=== PATIENT | female | born 1985 | race Caucasian/White ===

== ENCOUNTER 2022-02-02 01:46 | Day surgery (SDC) | payer OTHER, SELFPAY ==
[2022-01-28 14:10] VITALS: BMI 33.3
--- NOTE | 2022-01-28 14:19 | PC.NURSE ---
Report to the Outpatient Waiting Room, entrance under the green pavilion located off [facility], at time 0800 on date 02/02/22. OR Time: 1000. Time changes happen often and if your time is changed the preop area will call you the afternoon before. - You and your visitor will be asked to self-screen and do not enter if you have any COVID symptoms. - We encourage only one visitor and NO visitors under age 16 are allowed at this time. Your visitor will receive communication by the phone number that is given day of service. - The patient visitor is requested to social distance or may leave the building when not with patient due to restrictions. - A mask is required within the hospital. Patients may have clear liquids (water, carbonated beverages, clear teas, apple juice) until 3 hours prior to surgery with a maximum of 20 ounces. - No food from midnight until time of surgery Take the following medications with a SIP of water the morning of surgery: BUSPIRONE, GABAPENTIN Medications to discontinue per physician: VITAMINS Date to take last dose: 01/29/[address] FLORES'S INSTRUCTIONS Please no make-up, nail mozambican, hairspray, perfume, deodorant, or body powder the day of surgery. No jewelry (including any body piercings) or valuables the day of surgery, leave them at home. Please take a shower or bath the night before, or the morning of, surgery with an antibacterial soap. Wear comfortable, loose fitting clothing. - Jewelry must be removed prior to entering the operating room. Rings and piercings that are not removed may be cut off. - The hospital will not accept responsibility for valuables. - Please leave all valuables, including medications, at home the day of surgery. If you are going home after surgery, a licensed armored car driver must drive you home. - NO public transportation without another adult. - We recommend that an adult stay with you for 24 hours following discharge. - We also recommend that you do not drive, make important decision, drink alcoholic beverages, or take any drugs that were not prescribed by your health care provider for at least 24 hours after your discharge time. Follow any additional instructions given to you from your surgeon. If you or anyone in your household have experienced Covid symptoms in the past week, please notify your surgeon or the nurse liaison at the phone number below for possible testing. Telephone instructions given to PT - NICHOL WARD and asked if any additional questions and then verbalized understanding. Patient advised to call surgeon office or pre surgery nurse liaison [phone] if any additional questions.
[2022-02-02] MEDS: ACETAMINOPHEN 500 MG TABLET 1000 MG PO (08:45)
[2022-02-02] MEDS: LACTATED RINGERS 1,000 ML 30 ML IV CONT ×2 (08:55→11:00)
[2022-02-02] MEDS: ONDANSETRON INJ 4 MG/2 ML VIAL IV PUSH (09:14)
--- NOTE | 2022-02-02 09:26 | WPDANESEPPF ---
Anes - Initial Pre Proc Eval Procedure: Operation Date: 02/02/22 10:00 Proposed Procedures p Hysteroscopy with Dilation and Curettage - Mira Vann MD Date/Time: 02/02/22 09:26 Surgeon: Mira Vann MD Pre Op Diagnosis: Abnormal Uterine Bleeding Patient Data Age: 36 Gender: F Height: 1.63 m Weight: 88 kg Allergies Allergy/AdvReac Type Severity Reaction Status Date / Time amoxicillin Allergy Anaphylactic Verified 01/28/22 14:08 Shock morphine Allergy Anaphylactic Verified 01/28/22 14:08 Shock Penicillins Allergy Anaphylactic Verified 01/28/22 14:08 Shock Home Medications Medication Instructions Recorded Confirmed Type dykpryc-xqacnkolghbcn-wompponk 250 1 tablet PO Q4-6H PRN Pain 01/28/22 01/28/22 History mg-250 mg-65 mg tablet (Excedrin Migraine) buspirone 30 mg tablet 30 mg PO BID 01/28/22 01/28/22 History gabapentin 800 mg tablet 800 mg PO TID 01/28/22 01/28/22 History multivitamin 1 tablet PO DAILY 01/28/22 01/28/22 History Patient hx anesthesia problems: none Family hx anesthesia problems: none Results Review: All pre-operative results and documents have been reviewed as part of the pre-operative evaluation. [facility] Social History Social History Smoking status: Never smoker Alcohol intake: current Alcohol use details: RARE Substance use: current Substance use type: marijuana Living arrangements: with family Spiritual care concerns: No Anes - Eval Final PreProcedure Day of Procedure 02/02/22 09:26 Patient weight: obese Heart: regular rate and rhythm Lungs: clear to auscultation Airway: Mallampati scale class II Neurological: alert and oriented Last oral intake: >/= 8 hours ASA classification: II Emergent: no Anesthetic plan: proceed Anesthesia type and monitoring: general GIVS and standard monitoring Results Review: All pre-operative results and documents have been reviewed as part of the pre-operative evaluation. Informed Consent: The patient's anesthetic plan and its attendant risks and benefits were discussed with the patient/family/POA. Questions were solicited and answers provided to the satisfaction of the patient/family/POA.
--- NOTE | 2022-02-02 09:26 | WPDHPUPDATE1 ---
History and Physical Update Update Date/Time: 02/02/22 09:26 History and Physical has been reviewed, including an updated exam of the patient. There are NO changes in the patient's condition. Risks, benefits, and alternatives have been discussed and questions answered. Patient agrees to proceed with procedure.
[2022-02-02 09:33] VITALS: BP 127/78; PULSE 87; RESP 16; TEMP 36.2; O2SAT 100
--- NOTE | 2022-02-02 09:33 | PM.IMHP ---
H&P: HPI History of Present Illness Date/Time: 02/02/22 09:33 Chief Complaint: Irregular bleeding Narrative: this patient is a 36-year-old female with abnormal uterine bleeding. Endometrial biopsy failed in the office and we have agreed to perform hysteroscopy D&C. She understands that surgery has risks. She understands injuries may occur that result in hospitalization, more surgery, severe illness. She understands there is risk of hemorrhage and infection. Review of Systems Review of Systems: All systems reviewed & are unremarkable except as noted in HPI and below Constitutional: Constitutional: Denies chills, Denies fatigue, Denies fever(s) and Denies weakness Eyes: Eyes: Denies blurry vision, Denies change in vision, Denies loss of peripheral vision, Denies loss of vision, Denies other visual disturbances and Denies eye pain ENT: Denies vertigo, Denies dizziness, Denies hearing loss, Denies mouth pain, Denies nasal obstruction, Denies neck mass and Denies neck pain Cardiovascular: Cardiovascular: Denies chest pain, Denies diaphoresis, Denies syncope, Denies leg edema and Denies dyspnea Respiratory: Respiratory: Denies chest congestion, Denies cough, Denies hemoptysis, Denies dyspnea and Denies wheezing Gastrointestinal: Gastrointestinal: Denies abdominal pain, Denies constipation, Denies diarrhea, Denies nausea and Denies vomiting Genitourinary: Genitourinary: Denies hematuria, Denies change in libido, Denies nocturia, Denies genital lesions, Denies flank pain and Denies urinary urgency Musculoskeletal: Musculoskeletal: Denies abnormal gait, Denies back pain, Denies myalgias, Denies arthralgias, Denies joint swelling, Denies muscle weakness and Denies neck pain Integumentary/Breasts: Skin/Breast: Denies swelling, Denies breast pain, Denies breast mass, Denies dry skin, Denies nipple discharge, Denies unusual bruising and Denies jaundice Neurologic: Denies Neuro-related abnormal movements, Denies Abnormal speech present, Denies abnormal gait, Denies behavioral changes, Denies confusion, Denies vertigo, Denies dizziness, Denies syncope, Denies loss of vision, Denies memory loss, Denies convulsions and Denies weakness Psychiatric: Psychiatric: Denies abnormal sleep pattern, Denies behavioral changes, Denies change in libido, Denies confusion, Denies depression, Denies anhedonia and Denies memory loss Endocrine: Endocrine: Reports no additional endocrine complaints, Denies change in libido and Denies fatigue Hematologic/Lymphatic: Hematologic/Lymphatic: Reports no additional hematologic/lymphatic complaints Allergic/Immunologic: Allergic/Immunologic: Reports no additional allergic/immunologic complaints and Denies wheezing PMF Social History Social History Smoking status: Never smoker Alcohol intake: current Alcohol use details: RARE Substance use: current Substance use type: marijuana Living arrangements: with family Spiritual care concerns: No Meds Home Medications and Allergies Home Medications Medication Instructions Recorded Confirmed Type jxydcbe-gcprrgwvlptwk-nnmdwdmu 250 1 tablet PO Q4-6H PRN Pain 01/28/22 01/28/22 History mg-250 mg-65 mg tablet (Excedrin Migraine) buspirone 30 mg tablet 30 mg PO BID 01/28/22 01/28/22 History gabapentin 800 mg tablet 800 mg PO TID 01/28/22 01/28/22 History multivitamin 1 tablet PO DAILY 01/28/22 01/28/22 History Allergies Allergy/AdvReac Type Severity Reaction Status Date / Time amoxicillin Allergy Anaphylactic Verified 02/02/22 09:31 Shock morphine Allergy Anaphylactic Verified 02/02/22 09:31 Shock Penicillins Allergy Anaphylactic Verified 02/02/22 09:31 Shock Exam Const: General: cooperative, healthy appearing, comfortable and no acute distress; No confusion Orientation/consciousness: oriented to person, oriented to place, oriented to time and No confusion HENMT: Head: normal to inspection Ears: external ears n
[2022-02-02] MEDS: LIDOCAINE HCL 1% PF 30 ML VIAL 10 ML INFILTRATE (09:50)
--- NOTE | 2022-02-02 10:23 | W.PM.PROC2 ---
Procedure Note - Detailed Date of Procedure 02/02/22 Pre-op Diagnosis Abnormal Uterine Bleeding Post-op Diagnosis Same Procedure Performed Hysteroscopy D&C Surgeon Mira Vann MD Anesthesia MAC Indications abnormal uterine bleeding Description of Procedure the patient was taken the operating room. She was prepped and draped in the dorsal lithotomy position after induction of mac anesthesia. A speculum was placed in the vagina. The cervix was grasped with a tenaculum. The cervix was dilated about 1 cm. The hysteroscope was inserted. The intrauterine cavity and endocervix were evaluated. Hysteroscope was withdrawn. A medium-size curette was used to curettage all the surfaces were within the endometrial cavity. the sample was collected on Telfa and sent to pathology. The hysteroscope was reinserted and the above findings were noted. Patient tolerated the procedure well. The speculum and tenaculum were removed. She was taken recovery room in stable condition. Sponge lap and needle counts were correct x2. Estimated Blood Loss 40 Drains No Packing No Pathology Yes Complications No immediate complications Condition Stable Disposition PACU
[2022-02-02 10:25] VITALS: BP 107/84; PULSE 68; RESP 16; O2SAT 100
[2022-02-02] MEDS: KETOROLAC 15 MG/ML VIAL (*BKC) IV PUSH (10:35)
[2022-02-02 10:55] VITALS: BP 132/84; PULSE 59; RESP 16
[2022-02-02] MEDS: fentaNYL CITRATE INJ (*CRX) 100 MCG/2 ML VIAL 25 MCG IV PUSH ×3 (11:05→11:23)
[2022-02-02 11:25] VITALS: BP 105/53; PULSE 51; RESP 12
[2022-02-02] MEDS: oxyCODONE/ACETAMINOPHEN (*CRX) 5-325 MG TABLET 1 TABLET PO (11:40)
== END 2022-02-02 12:08 | disposition home or self-care (01) ==
PROVIDERS: PCP Physician Assistant; Visit Provider Obstetrics & Gynecology
PROC: 0U5B8ZZ Destruction of Endometrium, Via Natural or Artificial Opening Endoscopic (ICD-10-PCS; CPT 58563; principal; 2022-02-02 10:00)
DX: N93.9 Abnormal uterine and vaginal bleeding, unspecified (principal); E66.9 Obesity, unspecified; Z68.35 Body mass index [BMI] 35.0-35.9, adult
CPT/HCPCS: 58558; 88305; A9270; J1885; J2250; J2405; J2704; J3010; J7030; J7120

== ENCOUNTER 2022-03-16 01:16 | Day surgery (SDC) | payer OTHER, SELFPAY ==
[2022-03-04 15:20] VITALS: BMI 35.4
--- NOTE | 2022-03-04 15:24 | PC.NURSE ---
Addendum entered by Rocio Oneill RN 03/04/22 15:26: PT TO STOP VITAMINS 3 DAYS PRIOR TO SURGERY (LAST DOSE 03/12/22). Original Note: Report to the Outpatient Waiting Room, entrance under the green pavilion located off [facility], at time 0800 on date 03/16/22. Planned Procedure Time: 1000. Time changes happen often and if your time is changed the preop area will call you the afternoon before. - You and your visitor will be asked to self-screen and do not enter if you have any COVID symptoms. - Only one visitor is requested with a max of two and NO children visitors are allowed at this time. - The patient visitor may be requested to leave or wait in car when not with patient due to distancing restrictions. - A mask is optional within the hospital. Patients may have clear liquids (water, carbonated beverages, clear teas, apple juice) until 3 hours prior to surgery with a maximum of 20 ounces. - No food from midnight until time of surgery Take the following medications with a SIP of water the morning of surgery: BUSPIRONE AND GABAPENTIN IF NEEDED Medications to discontinue per physician: EXCEDRIN Date to take last dose: PER DR. FLORES Please no make-up, nail upper sorbian, hairspray, perfume, deodorant, or body powder the day of surgery. No jewelry (including any body piercings) or valuables the day of surgery, leave them at home. Please take a shower or bath the night before, or the morning of, surgery with an antibacterial soap. Wear comfortable, loose fitting clothing. - Jewelry must be removed prior to entering the operating room. Rings and piercings that are not removed may be cut off. - The hospital will not accept responsibility for valuables. - Please leave all valuables, including medications, at home the day of surgery. If you are going home after surgery, a licensed courtesy van driver must drive you home. - NO public transportation without another adult if you receive anesthesia. - We recommend that an adult stay with you for 24 hours following discharge. - We also recommend that you do not drive, make important decision, drink alcoholic beverages, or take any drugs that were not prescribed by your health care provider for at least 24 hours after your discharge time. Follow any additional instructions given to you from your surgeon. If you or anyone in your household have experienced Covid symptoms in the past week, please notify your surgeon or the nurse liaison at the phone number below for possible testing. Telephone instructions given to PT - NICHOL WARD and asked if any additional questions and then verbalized understanding. Patient advised to call surgeon office or pre surgery nurse liaison [phone] if any additional questions.
[2022-03-16] VITALS (7 sets, daily range): BP systolic 94–140; BP diastolic 68–94; PULSE 55–91; RESP 16; TEMP 36; O2SAT 95–100
[2022-03-16] MEDS: ACETAMINOPHEN 500 MG TABLET 1000 MG PO (07:57)
--- NOTE | 2022-03-16 08:23 | P.PNAN_ITS ---
Anes - Initial Pre Proc Eval Procedure: Operation Date: 03/16/22 10:00 Proposed Procedures p Hysteroscopy with Rebeca Endometrial Ablation - Mira Vann MD Date/Time: 03/16/22 08:23 Surgeon: Mira Vann MD Pre Op Diagnosis: Menorrhagia Patient Data Age: 36 Gender: F Height: 1.63 m Weight: 92.2 kg Last Vital Signs Temp 36.0 C L 03/16/22 08:05 Pulse 85 03/16/22 08:05 Resp 16 03/16/22 08:05 BP 110/78 03/16/22 08:05 Pulse Ox 98 03/16/22 08:05 O2 Del Method Room Air 03/16/22 08:05 Allergies Allergy/AdvReac Type Severity Reaction Status Date / Time amoxicillin Allergy Anaphylactic Verified 03/16/22 07:53 Shock morphine Allergy Anaphylactic Verified 03/16/22 07:53 Shock Penicillins Allergy Anaphylactic Verified 03/16/22 07:53 Shock Home Medications Medication Instructions Recorded Confirmed Type gaonzim-jrldvoawywprp-rcddjmnw 250 1 tablet PO Q4-6H PRN Pain 01/28/22 03/04/22 History mg-250 mg-65 mg tablet (Excedrin Migraine) buspirone 30 mg tablet 30 mg PO BID PRN Anxiety 01/28/22 03/04/22 History gabapentin 800 mg tablet 800 mg PO TID PRN Pain 01/28/22 03/04/22 History multivitamin 1 tablet PO DAILY 01/28/22 03/04/22 History Patient hx anesthesia problems: other (low sats bp) Family hx anesthesia problems: none Results Review: All pre-operative results and documents have been reviewed as part of the pre- operative evaluation. [facility] Past Medical History Medical History Anxiety Asthma Hx of migraines Neuropathy Social History Social History Smoking status: Never smoker Alcohol intake: current Alcohol use details: RARE Substance use: current Substance use type: marijuana Living arrangements: with family Gender identity (if verbalized by the patient): Female Sexual Orientation (if Verbalized by the Patient): Straight or Heterosexual Spiritual care concerns: No Anes - Eval Final PreProcedure Day of Procedure 03/16/22 08:23 Patient weight: obese Heart: regular rate and rhythm Lungs: clear to auscultation Airway: Mallampati scale class III Neurological: alert and oriented Last oral intake: >/= 8 hours ASA classification: III Emergent: no Anesthetic plan: proceed Anesthesia type and monitoring: general GIVS and standard monitoring Results Review: All pre-operative results and documents have been reviewed as part of the pre- operative evaluation. Informed Consent: The patient's anesthetic plan and its attendant risks and benefits were discussed with the patient/family/POA. Questions were solicited and answers provided to the satisfaction of the patient/family/POA.
[2022-03-16] MEDS: LACTATED RINGERS 1,000 ML 30 ML IV CONT ×2 (08:32→11:13)
--- NOTE | 2022-03-16 09:44 | WPDHPUPDATE1 ---
History and Physical Update Update Date/Time: 03/16/22 09:44 History and Physical has been reviewed, including an updated exam of the patient. There are NO changes in the patient's condition. Risks, benefits, and alternatives have been discussed and questions answered. Patient agrees to proceed with procedure.
--- NOTE | 2022-03-16 09:46 | PM.IMHP ---
H&P: HPI History of Present Illness Date/Time: 03/16/22 09:46 Chief Complaint: menorrhagia Narrative: this patient is a 36-year-old female with severe menorrhagia. We have agreed to treat her menorrhagia with hysteroscopy D&C, possible polypectomy and endometrial ablation. She understands there is risk. She understands that injuries may occur that result in hospitalization, more surgery, and severe illness. She understands risk of hemorrhage and infection. Review of Systems Review of Systems: All systems reviewed & are unremarkable except as noted in HPI and below Constitutional: Constitutional: Denies chills, Denies fatigue, Denies fever(s) and Denies weakness Eyes: Eyes: Denies blurry vision, Denies change in vision, Denies loss of peripheral vision, Denies loss of vision, Denies other visual disturbances and Denies eye pain ENT: Denies vertigo, Denies dizziness, Denies hearing loss, Denies mouth pain, Denies nasal obstruction, Denies neck mass and Denies neck pain Cardiovascular: Cardiovascular: Denies chest pain, Denies diaphoresis, Denies syncope, Denies leg edema and Denies dyspnea Respiratory: Respiratory: Denies chest congestion, Denies cough, Denies hemoptysis, Denies dyspnea and Denies wheezing Gastrointestinal: Gastrointestinal: Denies abdominal pain, Denies constipation, Denies diarrhea, Denies nausea and Denies vomiting Genitourinary: Genitourinary: Denies hematuria, Denies change in libido, Denies nocturia, Denies genital lesions, Denies flank pain and Denies urinary urgency Musculoskeletal: Musculoskeletal: Denies abnormal gait, Denies back pain, Denies myalgias, Denies arthralgias, Denies joint swelling, Denies muscle weakness and Denies neck pain Integumentary/Breasts: Skin/Breast: Denies swelling, Denies breast pain, Denies breast mass, Denies dry skin, Denies nipple discharge, Denies unusual bruising and Denies jaundice Neurologic: Denies Neuro-related abnormal movements, Denies Abnormal speech present, Denies abnormal gait, Denies behavioral changes, Denies confusion, Denies vertigo, Denies dizziness, Denies syncope, Denies loss of vision, Denies memory loss, Denies convulsions and Denies weakness Psychiatric: Psychiatric: Denies abnormal sleep pattern, Denies behavioral changes, Denies change in libido, Denies confusion, Denies depression, Denies anhedonia and Denies memory loss Endocrine: Endocrine: Reports no additional endocrine complaints, Denies change in libido and Denies fatigue Hematologic/Lymphatic: Hematologic/Lymphatic: Reports no additional hematologic/lymphatic complaints Allergic/Immunologic: Allergic/Immunologic: Reports no additional allergic/immunologic complaints and Denies wheezing PMFSH Past Medical History Medical History Anxiety Asthma Hx of migraines Neuropathy Social History Social History Smoking status: Never smoker Alcohol intake: current Alcohol use details: RARE Substance use: current Substance use type: marijuana Living arrangements: with family Gender identity (if verbalized by the patient): Female Sexual Orientation (if Verbalized by the Patient): Straight or Heterosexual Spiritual care concerns: No Meds Home Medications and Allergies Home Medications Medication Instructions Recorded Confirmed Type rarzjss-jvuybysugpccp-lnsgwvot 250 1 tablet PO Q4-6H PRN Pain 01/28/22 03/04/22 History mg-250 mg-65 mg tablet (Excedrin Migraine) buspirone 30 mg tablet 30 mg PO BID PRN Anxiety 01/28/22 03/04/22 History gabapentin 800 mg tablet 800 mg PO TID PRN Pain 01/28/22 03/04/22 History multivitamin 1 tablet PO DAILY 01/28/22 03/04/22 History Allergies Allergy/AdvReac Type Severity Reaction Status Date / Time amoxicillin Allergy Anaphylactic Verified 03/16/22 07:53 Shock morphine Allergy Anaphylactic Verified 03/16/22
[2022-03-16] MEDS: LIDOCAINE HCL 1% PF 30 ML VIAL 10 ML INFILTRATE (10:20)
--- NOTE | 2022-03-16 10:42 | W.PM.PROC2 ---
Procedure Note - Detailed Date of Procedure 03/16/22 Pre-op Diagnosis Menorrhagia Post-op Diagnosis Same Procedure Performed endometrial ablation with hysteroscopy d&c Surgeon Mira Vann MD Anesthesia MAC Indications Severe menorrhagia Findings Normal vulva vagina and cervix. Normal endometrium. Description of Procedure The patient was taken to the operating room. She was prepped and draped in the dorsal lithotomy position after induction of mac anesthesia. A speculum was placed in the vagina. Cervix grasped with a tenaculum. The cervix was dilated to about 1 cm. The hysteroscope was inserted. The above findings were noted. Endometrial curettage was performed with a medium-size curette. All surfaces of the endometrium were affected by the curettage. The specimens were collected and sent to pathology. Measurements were taken of the uterus and cervix. The uterine length was then entered into the hand piece of the Rebeca device. The device was inserted into the intrauterine cavity. The array of the device was expanded. The balloon cuff was inflated. A good seal was achieved. The energy and safety cycles were initiated and completed. The array was collapsed and the instrument was withdrawn after deflating the balloon cuff. Hysteroscope was reinserted. Above findings were noted. The hysteroscope was removed. The patient tolerated the procedure well. The speculum and tenaculum were removed. She was taken to recovery in stable condition. Sponge lap and needle counts were correct x2. Estimated Blood Loss 15 Pathology Yes Complications No immediate complications Condition Stable Disposition Same day
[2022-03-16] MEDS: fentaNYL CITRATE INJ (*CRX) 100 MCG/2 ML VIAL 25 MCG IV PUSH ×7 (10:49→12:35)
[2022-03-16] MEDS: ONDANSETRON INJ 4 MG/2 ML VIAL IV PUSH (10:51)
[2022-03-16] MEDS: MEPERIDINE HCL INJ (*CRX) 50 MG/ML AMPUL IV PUSH (11:24)
[2022-03-16] MEDS: oxyCODONE HCL (*CRX) 5 MG TAB IR PO (12:49)
== END 2022-03-16 13:05 | disposition home or self-care (01) ==
PROVIDERS: PCP Physician Assistant; Visit Provider Obstetrics & Gynecology
PROC: 0U5B8ZZ Destruction of Endometrium, Via Natural or Artificial Opening Endoscopic (ICD-10-PCS; CPT 58563; principal; 2022-03-16 10:00)
DX: N92.0 Excessive and frequent menstruation with regular cycle (principal); G62.9 Polyneuropathy, unspecified; F41.9 Anxiety disorder, unspecified; F12.90 Cannabis use, unspecified, uncomplicated; E66.9 Obesity, unspecified; Z68.34 Body mass index [BMI] 34.0-34.9, adult
CPT/HCPCS: 58563; 88305; A9270; J2175; J2250; J2405; J2704; J3010; J7030; J7120